=== PATIENT | male | born 1975 | race Caucasian/White ===

== ENCOUNTER → 2018-02-14 | Outpatient (CLI) | payer OTHER ==
[~2018-02-14] MED LIST: LISINOPRIL-HCT1 EAC2 PO; METOPROLOL SUCC50 MG PO; NAPROSYN500 MG PO; NEXIUM40 MG PO; NORCO 10-325 T1 EACH PO; NUCYNTA50 MG PO; ORPHENADRINE C100 M2 PO; ZANAFLEX4 MG PO
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
== END ==
LOC: M.PC 04:39
DX: M54.5 Low back pain (principal); G89.29 Other chronic pain; M79.604 Pain in right leg; M79.671 Pain in right foot

== ENCOUNTER → 2018-02-28 | Outpatient (CLI) | payer OTHER ==
[~2018-02-28] MED LIST changes: +NORFLEX100 MG PO
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
== END | disposition home or self-care (01) ==
LOC: M.PC 04:56
DX: M54.16 Radiculopathy, lumbar region (principal); G89.29 Other chronic pain; I10 Essential (primary) hypertension; Z79.899 Other long term (current) drug therapy; Z79.891 Long term (current) use of opiate analgesic